=== PATIENT | male | born 1985 | race Caucasian/White ===

== ENCOUNTER 2017-09-07 17:36 | Emergency (ER) | payer OTHER ==
[2017-09-07 17:59] VITALS: RESP 18; TEMP 98.4
--- NOTE | 2017-09-07 18:10 | C.PDOC ---
History Of Present Illness 32 year old male presents to the emergency room for the evaluation of bilateral neck pain over the past few months. Patient reports, pain is intermittent, but for past few weeks gradually worsen, more constant, aching with intermittent radiation to B/L arms. Pts ts, " feels tightness over my neck and upper arms area". Pt admits, was seen by PMD few months ago due to same complaints, was given muscle relaxant with improvement in pain. Patient denies any trauma/injury , fever, headaches, dizziness, visual changes, focal deficits, chest pain, shortness of breath, denies weakness, sensory or vascular deficits to B/L UEs. Ambulate to Ed for evaluation, not in any apparent distress. Time Seen by Provider: 09/07/17 18:01 Chief Complaint (Nursing): Upper Extremity Problem/Injury History Per: Patient Onset/Duration Of Symptoms: Gradual Past Medical History Reviewed: Historical Data, Nursing Documentation, Vital Signs Vital Signs: Last Vital Signs Temp 98.4 F 09/07/17 17:56 Pulse 69 09/07/17 17:56 Resp 18 09/07/17 17:56 BP 122/77 09/07/17 17:56 Pulse Ox 100 09/07/17 18:16 - Medical History PMH: No Chronic Diseases Surgical History: No Surg Hx Family History: States: No Known Family Hx - Social History Hx Alcohol Use: No Hx Substance Use: No Review Of Systems Except As Marked, All Systems Reviewed And Found Negative. Constitutional: Negative for: Fever, Chills Eyes: Negative for: Vision Change ENT: Negative for: Throat Pain Cardiovascular: Negative for: Chest Pain, Palpitations, Light Headedness Respiratory: Negative for: Cough, Shortness of Breath, Wheezing Gastrointestinal: Negative for: Nausea, Vomiting, Abdominal Pain, Diarrhea Musculoskeletal: Positive for: Neck Pain Skin: Negative for: Rash Neurological: Negative for: Weakness, Numbness, Altered Mental Status Physical Exam - Physical Exam Appears: Well, Non-toxic, No Acute Distress Skin: Normal Color, Warm, Dry, No Rash Head: Normacephalic Eye(s): bilateral: PERRL Nose: No Flaring, No Discharge Oral Mucosa: Moist, No Drooling Throat: No Drooling Neck: Normal ROM, Trachea Midline, No Midline Cervical Tenderness, Paracervical Tenderness (diffuse cervical with modearte muscle spasm.), No Step Off Deformity , Supple Cardiovascular: Rhythm Regular Respiratory: No Decreased Breath Sounds, No Accessory Muscle Use, No Stridor, No Wheezing Back: Normal Inspection, No Vertebral Tenderness, No Paraspinal Tenderness Extremity: Normal ROM, No Deformity, No Swelling Neurological/Psych: Oriented x3, Normal Speech, Normal Motor, Normal Sensation, Normal Reflexes ED Course And Treatment O2 Sat by Pulse Oximetry: 100 Pulse Ox Interpretation: Normal - Other Rad C-spine X-Ray: Interpreted by Me, Viewed By Me Interpretation: (-) acute fx or sublux Progress Note: On re-eval, pt is afebrile, hemodynamicaly stable. Non-toxic. Ambulatory in ED with stable gait. Neck: Supple, exam c/w paraspinal muscle tenderness with spasm. No midline tenderness, no palpable efomrity, no skin hcanges. ENT: No acute findings. Lungs: CTA B/L, BS equal B/L. Neuorlogicaly intact. C-spine xary review and appears normal. Pt advised. ref. to f/u with PM, ortho in 2-3 days for re-eavl. return if any new changes. Disposition Counseled Patient/Family Regarding: Studies Performed, Diagnosis, Need For Followup, Rx Given - Disposition Referrals: Ace Martinez MD [Staff Provider] - Disposition: HOME/ ROUTINE Disposition Time: 18:22 Condition: STABLE Additional Instructions: TAKE MEDICATION PRESCRIBED FOLLOW UP WITH PMD AND ORTHOPEDIST IN 2-3 DAYS FOR RE-EVALUATION. RETURN TO ED IF ANY WORSENING OR NEW CHANGES. Prescriptions: Ibuprofen [Motrin Tab] 600 mg PO Q6 #20 tab Methocarbamol [Robaxin] 500 mg PO TID #14 tab Instructions: Cervical Radiculopathy (ED) Forms: [employer] (Mauritian) - Clinical Impression Clinical Impression: Cervical radiculopathy
[2017-09-07 19:21] VITALS: BP 121/76; PULSE 71; O2SAT 98
--- NOTE | 2017-09-08 08:13 | RAD ---
PROCEDURE: Cervical Spine Radiographs. HISTORY: Pain. COMPARISON: None. FINDINGS: BONES: Alignment maintained. No fracture. Dens Intact. DISC SPACES: Normal. SOFT TISSUES: Normal. No prevertebral soft tissue swelling. OTHER FINDINGS: None. IMPRESSION: Unremarkable cervical spine radiographs. If symptoms persist or worsen follow-up CT or MRI is recommended.
== END 2017-09-07 19:21 | disposition home or self-care (01) ==
LOC: C.ER 17:36
DX: M54.12 Radiculopathy, cervical region (principal)